=== PATIENT | male | born 1955 | race African-American/Black ===

== ENCOUNTER 2022-04-16 19:01 | Emergency (ER) | payer MEDICARE, MEDICAID, SELFPAY ==
[2022-04-16 19:19] VITALS: BP 128/92; BP 136/78; PULSE 81; PULSE 90; RESP 22; TEMP 36.9; O2SAT 93; O2SAT 94; BMI 42.2
--- NOTE | 2022-04-16 20:01 | ED_ITS ---
HPI - General Adult General Chief complaint: Epistaxis Stated complaint: Nose bleed Time Seen by Provider: 04/16/22 19:19 Source: patient Mode of arrival: EMS Limitations: no limitations History of Present Illness HPI narrative: 66 yold male with pmh of hepC, seizures, and high blood pressure presents to the ED for nose bleed since 15:00. Patient states his room was hot and then the lobby was hotter which cause nose bleeding. Patient states usually when the area is hot and humid he has nose bleed. Patient denies any recent nasal trauma, facial trauma, headache, dizziness, shortness of breath, chest pain, or swallowing/coughing up blood. Related Data Allergies Allergy/AdvReac Type Severity Reaction Status Date / Time No Known Allergies Allergy Verified 04/16/22 19:28 Review of Systems Review of Systems: Nose bleed Yes all other systems are reviewed and are negative [facility] Social History Social History Advance Directives: No Advance Directives Information Provided: No Physical Exam ED Vital Signs: Vital Signs - 24 hr 04/16/22 19:19 04/16/22 21:53 Temperature 98.5 F 98 F Pulse Rate 81 73 Respiratory Rate 22 H Blood Pressure 128/92 H 127/89 Pulse Oximetry 94 90 L Oxygen Delivery Method Room Air Room Air BMI result Body Mass Index 42.2 Const General: cooperative, healthy appearing, comfortable, no acute distress, well developed, alert, awake and Physically active Orientation/consciousness: oriented to person, oriented to place, oriented to time and patient oriented x3 HENMT Other: No blood in oral cavity.. No bleeding posterior pharynx oral on exam Head: Yes normal to inspection, Yes No palpable skull fracture present, Yes normocephalic, Yes atraumatic and No abrasion General nose exam: Epistaxis present bilaterally (seems anterior) active bleeding Eyes General: appearance normal, both eyes and all related structures Neck Neck: Yes normal visual inspection, Yes full ROM, Yes no lymphadenopathy, Yes no meningeal signs, Yes trachea midline, Yes supple, No anterior neck swelling and No tender Chest Chest palpation & inspection: normal inspection of the chest and normal palpation of entire chest wall Resp Effort & Inspection: normal respiratory effort and able to speak in complete sentences Auscultation: clear to auscultation bilaterally Cardio Jugular venous distension: no JVD Heart sounds: S1 normal heart sound present and S2 normal heart sound present GI Inspection: Yes normal to inspection and No abdominal wall ecchymosis Palpation (GI): Soft to palpation, not firm, nontender and no guarding General: No CVA tenderness and Yes no CVA tenderness Back/Spine/Pelvis Back: no CVA tenderness, No CVA tenderness and No back tenderness Skin General skin exam: no rashes or lesions noted and elasticity normal Neuro General: oriented to person, oriented to place, oriented to time, patient oriented x3, Normal light touch and pain sensation, no meningeal signs, no focal motor deficits and CN's II-XI intact bilaterally Extrem General: Yes normal to inspection and Yes full ROM Psych Appearance: grossly normal, well kempt and not disheveled Course Course Course Narrative: Nares clean with gauze. Bleeding improving. Once again oral exam negative for bleeding in specially posterior pharynx. Reevaluation(s) Reevaluation #1: Hand made nose clip with gauze placed on nares. Afrin was sprayed in each nostril. CN X sprayed into each nostril and then Tranxemic aci placed on cotton ball was placed into nares. Will evaluate. Time: 20:00 Reevaluation #2: Patient has been without any cotton ball in the nares and has not bled for 1 hour. No need for nasal packing. Post sat 90 is positional patient flat and has sleep apnea. Patient sleeping. Patient well-appearing. Patient to be discharged. No nasal packing needed Time: 22:31 Reevaluation #3: 02 sat on monitor before discharge 95%. Time: 00:10 Medications Administered Discontinued Medications Generic Name Dose Route Start Last Admin Trade Name [place]anoq PRN Reason Stop Dose Admin Tranexamic Acid 1,000 mg/ 60 mls @ 360 mls/hr 04/16/22 19:28 04/16/22 22:56 Sodium Chloride IV 04/16/22 19:37 360 mls/hr ONCE ONE Administration Oxymetazoline HCl 2 spray 04/16/22 19:28 04/16/22 22:56 Oxymetazoline Hcl 0.05 % Nasal 15 Ml [place] NOSTRIL-B 04/16/22 19:29 2 spray ONCE ONE Administration Medical Decision Making MDM Narrative Medical decision making narrative: Epistaxis Discharge Plan Discharge Clinical Impression: Epistaxis Patient Disposition: er [facility] Transfer Details: BACK TO [facility] Instructions: Nosebleed (ED) Additional Instructions: Do not sneeze at all. Do not pick her nose. Return to the ED for any nose bleed, trouble swallowing, blood from the mouth, chest pain, shortness of breath, weakness, dizziness, or any other concerning symptoms. Please follow-up with primary care provider. Print Language: Latvian
[2022-04-16 21:53] VITALS: BP 127/89; PULSE 73; TEMP 36.6; O2SAT 90
--- NOTE | 2022-04-16 22:08 | PC.NURSE ---
gravedigger in pt room asked for assistance by this RN. pt SpO2 90% RA. pt looked to need to be repositioned in bed. this rn , gravedigger alla, roger cid, and dr mcelroy boosted pt up in bed. ONce patient repositioned and HOB elevated SpO2 97% RA
--- NOTE | 2022-04-16 22:36 | PC.NURSE ---
@ [id number] CALL PLACED TO [facility] FOR BLS TRANSPORT BACK TO [facility] ANSWERS, TAKES PT INFO THEN STATE THIS TRANSPORT WILL TAKE PLACE AFTER 7AM DUE TO STAFFING CHRISTIAN December
[2022-04-16] MEDS: Tranexamic Acid 1,000 MG in 0.9 % Sodium Chloride 50 ML 360 MG IV (22:56)
[2022-04-16] MEDS: Oxymetazoline HCl 0.05 % Nasal 15 ML SPRAY 2 SPRAY NOSTRIL-B (22:56)
== END 2022-04-17 00:58 | disposition skilled nursing facility (03) ==
PROVIDERS: Emergency Provider Student in an Organized Health Care Education/Training Program
DX: R04.0 Epistaxis (principal)
CPT/HCPCS: 99284

== ENCOUNTER 2022-11-10 12:35 | Emergency (ER) | payer MEDICARE, MEDICAID, SELFPAY ==
--- NOTE | ~2022-11-10 | XR_ITS ---
EXAMINATION: XR CHEST CLINICAL INFORMATION: Cough COMPARISON: None available. TECHNIQUE: Frontal view of the chest was obtained. FINDINGS: The lungs are well expanded. There is no focal consolidation, edema, or effusion. Bronchial wall thickening. No pneumothorax. The cardiomediastinal silhouette is within normal limits. No acute osseous abnormality. XR/XR chest 1V IMPRESSION: No dense consolidation. Bronchial wall thickening can be seen with a small airways process such as asthma or atypical/viral infection.
--- NOTE | ~2022-11-10 | CT_ITS ---
CT ANGIOGRAM NECK WITH CONTRAST CT ANGIOGRAM BRAIN WITH CONTRAST CLINICAL INFORMATION: Loss of vision right eye COMPARISON: Head CT performed earlier the same day. TECHNIQUE: Test bolus sequences followed by intravenous administration 70 mL of Omnipaque 350. Helical imaging was performed in the axial plane from the thoracic inlet to the skull vertex. Delayed postcontrast imaging of the head was also performed. The data was processed at the medical technologist microbiology workstation for generation of MIP sequences. Angled MIPs and volume rendered reformatted images were also generated at an offline 3D workstation under concurrent supervision. Stenoses are assessed in accordance with NASCET criteria unless otherwise indicated. This CT examination was performed using dose optimization techniques as appropriate, variously including the following: *Automated exposure control *Adjustment of mA and/or kV according to patient size (this includes techniques or standardized protocols for targeted exams where dose is matched to indication/reason for exam; i.e. extremities or head) *Use of iterative reconstruction technique FINDINGS: BRAIN: [There is no intracranial hemorrhage, hydrocephalus, extra-axial surface collection, midline shift, or other herniation pattern. Iqbal to white matter differentiation is diffusely maintained without evidence of an evolved acute territorial infarct. The basilar cisterns are preserved. No significant soft tissue abnormality. No acute osseous abnormality. The paranasal sinuses and the mastoid air cells are well aerated.] CERVICAL SOFT TISSUES AND LUNG APICES: Peripheral blebs within the lungs. Atelectasis dependently within the lungs. No significant soft tissue findings within the neck. Postoperative changes following posterior instrumented fusion at C1-C3. Advanced cervical spondylosis. NECK CTA: [There is a classic 3 vessel configuration of the aortic arch. Proximal arch vessels are non-stenotic. The vertebral arteries are codominant. No significant ostial stenosis is visualized on either side. Both vertebral arteries are widely patent throughout their extracranial cervical course. Retropharyngeal course of the common carotid arteries, the proximal right internal carotid artery, and the proximal left external carotid artery. BRAIN CTA: [There is normal opacification of major intracranial arteries. No focal flow-limiting stenosis nor discrete proximal large artery occlusion. No aneurysm. Timing of the contrast bolus allows assessment of the major dural venous sinuses, which all opacify normally] CT/CT angio head neck IMPRESSION: - No definite acute intracranial findings. Chronic right frontoparietal craniotomy. There is cystic encephalomalacia and probable gliosis within the adjacent right frontal lobe. There is also chronic appearing encephalomalacia and gliosis within the lateral right temporal lobe with associated exvacuodilatation of the right temporal horn. If neurologic deficit persists, MRI would be more sensitive in evaluation. - No acute arterial occlusions and no significant arterial stenoses within the head or neck. - Postoperative changes following posterior instrumented fusion at C1-C3. Advanced cervical spondylosis.
--- NOTE | ~2022-11-10 | CT_ITS ---
EXAMINATION: CT HEAD WITHOUT CONTRAST CLINICAL INFORMATION: Loss of vision in the right COMPARISON: None. TECHNIQUE: Contiguous axial imaging was performed from the skull base to vertex without intravenous contrast. This CT examination was performed using dose optimization techniques as appropriate, variously including the following: * Automated exposure control * Adjustment of mA and/or kV according to patient size (this includes techniques or standardized protocols for targeted exams where dose is matched to indication/reason for exam; i.e. extremities or head) Use of iterative reconstruction technique DLP: 872 mGy-cm. FINDINGS: There is postsurgical appearance of right frontal craniotomy. Underlying cystic encephalomalacia in the right frontal lobe. Ex vacuo dilatation of the frontal horn of the right lateral ventricle. Separately there is an area of hypoattenuation with loss of locke to white matter differentiation involving the right temporal lobe. This is of uncertain chronicity, with no priors to compare. There is no evidence of acute intracranial hemorrhage. No abnormal mass effect or midline shift is seen. No extra-axial fluid collections are identified. No hydrocephalus. Proportional prominence of the ventricles and sulcal spaces is consistent with mild volume loss. Patchy periventricular and deep white matter hypoattenuation is consistent with moderate small vessel ischemic changes. No acute osseous or soft tissue abnormality.. The mastoid air cells and visualized portions of the paranasal sinuses are well aerated. CT/CT head/brain wo IV con IMPRESSION: No acute intracranial hemorrhage. Postsurgical changes of right frontal craniotomy with underlying cystic encephalomalacia of the right frontal lobe. Separately there is an area of hypoattenuation with loss of locke to white matter differentiation involving the right temporal lobe. This is of uncertain chronicity, with no priors to compare. Cannot exclude acute/subacute process. This will be further evaluated on the subsequent CTA.
[2022-11-10 12:40] VITALS: BP 138/81; PULSE 80; O2SAT 90
[2022-11-10 12:41] VITALS: BMI 44.3
--- NOTE | 2022-11-10 13:17 | ECG_ITS ---
Test Reason : ? STROKE Blood Pressure : / mmHG Vent. Rate : 064 BPM Atrial Rate : 064 BPM P-R Int : 224 ms QRS Dur : 090 ms QT Int : 410 ms P-R-T Axes : 049 -12 001 degrees QTc Int : 422 ms Sinus rhythm with 1st degree A-V block Otherwise normal ECG No previous ECGs available Referred By: Agnieszka Law Electronically Signed By:ARELI KLINE MD
--- NOTE | 2022-11-10 13:20 | ED.NEUROSD ---
HPI - Neuro Symptoms/Deficit General Chief Complaint: Eye Problems Stated Complaint: woke up unable to see out of r eye per ems Time Seen by Provider: 11/10/22 13:06 Source: patient Mode of arrival: EMS History of Present Illness HPI Narrative: 67-year-old male who is from [facility] arrives via EMS when he states he woke up with loss of sight in the right eye, it is noted to be pinpoint and not reactive to light, patient is a vague historian has an extensive history of TBI. On review of his chart I only appreciate hypertension and hep C other than the TBI in no evidence to suggest cardiac or diabetic history. Related Data Home Medications Medication Instructions Recorded Confirmed amlodipine 5 mg tablet 5 mg PO DAILY 11/10/22 atorvastatin 10 mg tablet 10 mg PO DAILY 11/10/22 clonazepam 1 mg tablet 1 mg PO BID PRN Anxiety 11/10/22 levetiracetam 1,000 mg tablet 1,000 mg PO BID 11/10/22 lisinopril 2.5 mg tablet 2.5 mg PO DAILY 11/10/22 Allergies Allergy/AdvReac Type Severity Reaction Status Date / Time No Known Allergies Allergy Verified 11/10/22 13:13 Review of Systems Review of Systems: Pertinent positives and negatives as stated in HPI PMFSH Past Medical History Source: nursing notes reviewed Social History Social History Advance Directives: Yes Advance Directives on File: Yes Advance Directives Date on File: 04/19/22 Physical Exam Vital Signs: Vital Signs: Last Vital Signs Temp 98.6 F 11/10/22 15:08 Pulse 72 11/10/22 20:10 Resp 16 11/10/22 20:10 BP 129/85 11/10/22 17:26 Pulse Ox 91 L 11/10/22 17:26 O2 Del Method Room Air 11/10/22 17:26 O2 Flow Rate 2 11/10/22 15:08 BMI result Body Mass Index 44.3 VITAL SIGNS: Reviewed. GENERAL: Elevated BMI, Well developed, well nourished, in no acute distress. HEAD: Normocephalic/atraumatic EYES: PERRLA, EOMI EARS: Ext canals without abnormality NOSE: Nares patent bilateral OROPHARYNX: no oral lesions noted, posterior pharynx clear NECK: Supple, no adenopathy LUNGS: Normal breath sounds. No adventitious sounds or accessory muscle use. CARDIOVASCULAR: Regular rate and rhythm without noted murmurs, no JVD bilateral 2 to 3+ pitting edema. ABDOMEN: Soft, non-tender, non-distended with bowel sounds. MUSCULOSKELETAL: No tenderness, deformities, or effusions noted on gross inspection. EXTREMITIES: No cyanosis, clubbing or edema. SKIN: Inspection of the skin reveals no rashes NEUROLOGIC: Alert and oriented x 4. Strength and sensation to light touch were grossly intact x 4 2nd no facial asymmetry, no pronator drift, cranial nerves 2-12 are grossly intact. Medications Administered Discontinued Medications Generic Name Dose Route Start Last Admin Trade Name Freq PRN Reason Stop Dose Admin Acetazolamide 500 mg 11/10/22 17:16 11/10/22 17:35 Acetazolamide Sodium 500 Mg Vial IVPUSH 11/10/22 17:17 500 mg ONCE ONE Administration Albuterol/Ipratropium 3 ml 11/10/22 19:24 11/10/22 20:10 Albuterol/Iprat 2.5/0.5mg 3 Ml Ampul.Neb INHALE 11/10/22 19:25 3 ml ONCE ONE Administration Apraclonidine HCl 1 drop 11/10/22 17:26 11/10/22 17:37 Apraclonidine Hcl 1 % Oph Antonina 1 Each [place] EYE-RIGHT 11/10/22 17:27 1 drop ONCE ONE Administration Apraclonidine HCl 1 drop 11/10/22 18:05 11/10/22 18:17 Apraclonidine Hcl 1 % Oph Antonina 1 Each [place] EYE-RIGHT 11/10/22 18:06 1 drop ONCE ONE Administration Iohexol 100 ml 11/10/22 15:41 11/10/22 15:41 Iohexol 350 Mg/Ml 100 Ml Infus..Btl IV 11/10/22 15:42 70 ml ONCE ONE Administration Timolol Maleate 1 drop 11/10/22 17:10 11/10/22 17:35 Timolol Maleate 0.5 % Oph Antonina 5 Ml Drbtl EYE-RIGHT 11/10/22 17:11 1 drop ONCE ONE Administration Medical Decision Making Medical Decision Making MDM Narrative: 67-year-old male with history and clinical presentation concerning for possible thrombus to the right eye, pupil is pinpoint and nonreactive there are no other focal findings, he is out of the window for intervention. -labs, EKG, CT head, CT angio head and neck Review of all investigations negative for acute intracranial findings to better explain patient's presentation. I is pinpoint, remains without vision, remains without pain, no erythematous injection, no exophthalmos features. Remained the decision to go ahead and attempt IOP and OD-41, OS-15. Timolol has been ordered and I will speak with Ophthalmology. 1724: I discussed the case with Dr. Thao who recommends Iopidine 0.5, 1 drop, recheck IOP in 30 minutes to 1 hour and if pressures have decreased to the 20s, repeat additional Iopidine drops tonight and again in the morning. If pressures do not drop then patient would need to be transferred to [facility] or [facility] if they have current ophthalmology coverage. He also agrees with the timolol and Acetazolamide. He also recommends ESR, CRP. 30 minutes repeat IOP OD-36, updated Master. Inflammatory markers are negative. 1924: Repeat IOP -28, patient still denies any vision within that eye. I have updated ophthalmology and plan is that if pressures are within the 20s, patient will take 1 more dose tonight and then again in the morning. Will ensure that the facility understands that patient needs to be seen by Dr. Thao in the morning. Differential Diagnosis Please see the discussion above Consult Healthcare Provider Management of the patient was discussed with: Insurance Office Supervisor Please see discussion above Lab Data Please see the discussion above 11/10/22 14:02 11/10/22 14:02 Labs: Lab Results 11/10/22 11/10/22 11/10/22 Range/Units 13:48 14:02 14:02 WBC 6.3 (4.8-10.8) X10*3/uL RBC 4.76 (4.60-5.80) X10*6/uL Hgb 13.8 L (14.0-18.0) g/dl Hct 44.9 (42.0-52.0) % MCV 94.3 (80.0-98.0) fL MCH 29.0 (27.0-33.0) pg MCHC 30.7 L (31.0-36.0) g/dl RDW 15.5 (11.0-16.0) % Plt Count 192 (160-400) X10*3/uL MPV 10.5 (9.4-12.4) fL Immature Gran % (Auto) 0.3 (0.0-0.4) % Neut % (Auto) 44.5 L (45-73) % Lymph % (Auto) 47.0 H (20-40) % [place] % (Auto) 6.9 (2-11) % Eos % (Auto) 1.0 (0-4) % Baso % (Auto) 0.3 (0-2) % Lymph # (Auto) 3.0 (1.2-4.9) X10*3/uL [place] # (Auto) 0.4 (0.1-1.2) X10*3/uL Eos # (Auto) 0.1 (0.0-0.4) X10*3/uL Baso # (Auto) 0.0 (0.0-0.2) X10*3/uL Abs Immat Gran (auto) 0.02 (0.00-0.03) X10*3/uL Absolute Neuts (auto) 2.8 (2.0-8.3) x10*3/uL Absolute Nucleated RBC 0.020 H (0.0-0.012) X10*3/uL Nucleated RBC % (auto) 0.3 H (0.0-0.2) /100WBC ESR (0-15) MM/HR PT 11.7 (10.0-13.1) SEC INR 1.0 (0.9-1.1) Sodium (135-145) mmol/L Potassium (3.3-5.1) mmol/L Chloride (96-108) mmol/L Carbon Dioxide (22-29) mmol/L Anion Gap (12-20) BUN (9-16) mg/dL Creatinine (0.5-1.4) mg/dL Estim Creat Clear Calc Estimated GFR POC Glucose 89 (60-115) mg/dL Random Glucose (60-115) mg/dL Calcium (8.4-10.2) mg/dL Total Bilirubin (0.0-1.0) mg/dL AST (5-37) U/L ALT (0-40) U/L Alkaline Phosphatase (39-117) U/L Troponin I High Sens (<3.5-35.0) ng/L C-Reactive Protein (< or = 0.50) mg/dL B-Natriuretic Peptide (<100) pg/mL Total Protein (6.5-8.0) g/dL Albumin (3.5-5.0) g/dL Urine Color Urine Appearance Urine pH (5.0-9.0) Ur Specific [place] (1.005-1.025) Urine Protein (Neg-Trace) mg/dL Urine Glucose (UA) (Negative) mg/dL Urine Ketones (Negative) mg/dL Urine Blood (Negative) Urine Nitrite (Negative) Ur Leukocyte Esterase (Negative) 11/10/22 11/10/22 11/10/22 Range/Units 14:02 14:02 14:02 WBC (4.8-10.8) X10*3/uL RBC (4.60-5.80) X10*6/uL Hgb (14.0-18.0) g/dl Hct (42.0-52.0) % MCV (80.0-98.0) fL MCH (27.0-33.0) pg MCHC (31.0-36.0) g/dl RDW (11.0-16.0) % Plt Count (160-400) X10*3/uL MPV (9.4-12.4) fL Immature Gran % (Auto) (0.0-0.4) % Neut % (Auto) (45-73) % Lymph % (Auto) (20-40) % [place] % (Auto) (2-11) % Eos % (Auto) (0-4) % Baso % (Auto) (0-2) % Lymph # (Auto) (1.2-4.9) X10*3/uL [place] # (Auto) (0.1-1.2) X10*3/uL Eos # (Auto) (0.0-0.4) X10*3/uL Baso # (Auto) (0.0-0.2) X10*3/uL Abs Immat Gran (auto) (0.00-0.03) X10*3/uL Absolute Neuts (auto) (2.0-8.3) x10*3/uL Absolute Nucleated RBC (0.0-0.012) X10*3/uL Nucleated RBC % (auto) (0.0-0.2) /100WBC ESR (0-15) MM/HR PT (10.0-13.1) SEC INR (0.9-1.1) Sodium 143 (135-145) mmol/L Potassium 4.9 (3.3-5.1) mmol/L Chloride 107 (96-108) mmol/L Carbon Dioxide 28 (22-29) mmol/L Anion Gap 13 (12-20) BUN 11 (9-16) mg/dL Creatinine 0.95 (0.5-1.4) mg/dL Estim Creat Clear Calc 114.6 Estimated GFR > 60 POC Glucose (60-115) mg/dL Random Glucose 88 (60-115) mg/dL Calcium 8.6 (8.4-10.2) mg/dL Total Bilirubin 0.4 (0.0-1.0) mg/dL AST 28 (5-37) U/L ALT 19 (0-40) U/L Alkaline Phosphatase 57 (39-117) U/L Troponin I High Sens < 2.7 (<3.5-35.0) ng/L C-Reactive Protein 0.10 (< or = 0.50) mg/dL B-Natriuretic Peptide < 10 (<100) pg/mL Total Protein 7.8 (6.5-8.0) g/dL Albumin 3.4 L (3.5-5.0) g/dL Urine Color Urine Appearance Urine pH (5.0-9.0) Ur Specific [place] (1.005-1.025) Urine Protein (Neg-Trace) mg/dL Urine Glucose (UA) (Negative) mg/dL Urine Ketones (Negative) mg/dL Urine Blood (Negative) Urine Nitrite (Negative) Ur Leukocyte Esterase (Negative) 11/10/22 11/10/22 Range/Units 14:02 15:11 WBC (4.8-10.8) X10*3/uL RBC (4.60-5.80) X10*6/uL Hgb (14.0-18.0) g/dl Hct (42.0-52.0) % MCV (80.0-98.0) fL MCH (27.0-33.0) pg MCHC (31.0-36.0) g/dl RDW (11.0-16.0) % Plt Count (160-400) X10*3/uL MPV (9.4-12.4) fL Immature Gran % (Auto) (0.0-0.4) % Neut % (Auto) (45-73) % Lymph % (Auto) (20-40) % [place] % (Auto) (2-11) % Eos % (Auto) (0-4) % Baso % (Auto) (0-2) % Lymph # (Auto) (1.2-4.9) X10*3/uL [place] # (Auto) (0.1-1.2) X10*3/uL Eos # (Auto) (0.0-0.4) X10*3/uL Baso # (Auto) (0.0-0.2) X10*3/uL Abs Immat Gran (auto) (0.00-0.03) X10*3/uL Absolute Neuts (auto) (2.0-8.3) x10*3/uL Absolute Nucleated RBC (0.0-0.012) X10*3/uL Nucleated RBC % (auto) (0.0-0.2) /100WBC ESR 10 (0-15) MM/HR PT (10.0-13.1) SEC INR (0.9-1.1) Sodium (135-145) mmol/L Potassium (3.3-5.1) mmol/L Chloride (96-108) mmol/L Carbon Dioxide (22-29) mmol/L Anion Gap (12-20) BUN (9-16) mg/dL Creatinine (0.5-1.4) mg/dL Estim Creat Clear Calc Estimated GFR POC Glucose (60-115) mg/dL Random Glucose (60-115) mg/dL Calcium (8.4-10.2) mg/dL Total Bilirubin (0.0-1.0) mg/dL AST (5-37) U/L ALT (0-40) U/L Alkaline Phosphatase (39-117) U/L Troponin I High Sens (<3.5-35.0) ng/L C-Reactive Protein (< or = 0.50) mg/dL B-Natriuretic Peptide (<100) pg/mL Total Protein (6.5-8.0) g/dL Albumin (3.5-5.0) g/dL Urine Color Yellow Urine Appearance Clear Urine pH 7.5 (5.0-9.0) Ur Specific [place] 1.020 (1.005-1.025) Urine Protein Negative (Neg-Trace) mg/dL Urine Glucose (UA) Negative (Negative) mg/dL Urine Ketones Negative (Negative) mg/dL Urine Blood Negative (Negative) Urine Nitrite Negative (Negative) Ur Leukocyte Esterase Negative (Negative) Independent Interpretation I performed an independent interpretation of an: EKG Interpretation: Sinus rhythm with first-degree AV block (no comparison), HR-64, no STEMI, VA-214, QRS/QTC is within normal limits. Radiology Impression Radiologist Impression: My interpretation is in agreement with radiology's impression. External Record Review External record reviewed: Prior outpatient labs Chronic Conditions Patient?s care impacted by: Hypertension Discharge Plan Discharge Clinical Impression: Increased pressure in the eye, Vision loss, right eye Patient Disposition: Xfer Other Instructions: Glaucoma (ED) Additional Instructions: 1. Resume all home medications as prescribed. 2. You need to place 1 drop from that vial into your right eye tonight, and then 1 drop in the morning. 3. You will be following up with Dr. Thao in the morning here at the [facility]. Return to the ER for any worsening symptoms. Prescriptions: No Action atorvastatin 10 mg tablet 10 mg PO DAILY clonazepam 1 mg tablet 1 mg PO BID PRN (Reason: Anxiety) amlodipine 5 mg tablet 5 mg PO DAILY lisinopril 2.5 mg tablet 2.5 mg PO DAILY levetiracetam 1,000 mg tablet 1,000 mg PO BID Referrals: Jeffry Thao [Physician] - (Right eye visual loss)
[2022-11-10 13:56] LABS: Glucose, Whole Blood 89 mg/dL (60-115)
[2022-11-10 14:07] LABS: MANUAL DIFF FLAG NO
[2022-11-10 14:08] LABS: Basophils Percent Auto 0.3 % (0-2); Eosinophils Absolute Auto 0.1 X10*3/uL (0.0-0.4); Hematocrit 44.9 % (42.0-52.0); Hemoglobin 13.8 g/dl (14.0-18.0); Imm Gran Abs Auto 0.02 X10*3/uL (0.00-0.03); Imm Gran Pct Auto 0.3 % (0.0-0.4); Mean Corpuscular HGB Conc 30.7 g/dl (31.0-36.0); Mean Corpuscular Volume 94.3 fL (80.0-98.0); Mean Platelet Volume 10.5 fL (9.4-12.4); Monocytes Absolute Auto 0.4 X10*3/uL (0.1-1.2); Monocytes Percent Auto 6.9 % (2-11); NRBC Pct Auto 0.3 /100WBC (0.0-0.2); Neutrophils Absolute Auto 2.8 x10*3/uL (2.0-8.3); Neutrophils Percent Auto 44.5 % (45-73); Platelet Count 192 X10*3/uL (160-400); Red Blood Count 4.76 X10*6/uL (4.60-5.80); Red Cell Distribution Width 15.5 % (11.0-16.0); White Blood Count 6.3 X10*3/uL (4.8-10.8)
[2022-11-10 14:23] LABS: Prothrombin Time 11.7 SEC (10.0-13.1)
[2022-11-10 14:26] LABS: Alanine Aminotransferase 19 U/L (0-40); Albumin Level 3.4 g/dL (3.5-5.0); Alkaline Phosphatase 57 U/L (39-117); Anion Gap 13 (12-20); Aspartate Amino Transferase 28 U/L (5-37); Bilirubin Total 0.4 mg/dL (0.0-1.0); Blood Urea Nitrogen 11 mg/dL (9-16); Calcium 8.6 mg/dL (8.4-10.2); Carbon Dioxide 28 mmol/L (22-29); Chloride 107 mmol/L (96-108); Creatinine Clr Calc Pharmacy 114.6; Estimated Glomerular Filt Rate > 60; Glucose Random 88 mg/dL (60-115); Potassium 4.9 mmol/L (3.3-5.1); Sodium 143 mmol/L (135-145); Total Protein 7.8 g/dL (6.5-8.0)
[2022-11-10 14:27] LABS: B Type Natriuretic Peptide < 10 pg/mL (<100)
[2022-11-10 14:31] LABS: Troponin-I High Sensitivity < 2.7 ng/L (<3.5-35.0)
[2022-11-10 15:08] VITALS: BP 134/93; PULSE 60; RESP 20; TEMP 37; O2SAT 94
[2022-11-10 15:22] LABS: Appearance Urine Clear; Color Urine Yellow; Glucose Urine UA Negative (Negative); Leukocyte Esterase Urine Negative (Negative); Nitrite Urine Negative (Negative); PH 7.5 (5.0-9.0); Urine Blood Negative (Negative); Urine Ketones Negative (Negative); Urine Protein Negative (Neg-Trace)
--- NOTE | 2022-11-10 15:32 | MHC.CM.ED ---
Received notification from Geeta at [facility] that patient is a LTC resident of their facility. Referral placed in [facility] so facility can follow for d/c needs.
[2022-11-10] MEDS: iohexoL 350 MG/ML 100 ML INFUS..BTL IV (15:41)
--- NOTE | 2022-11-10 17:19 | PC.NURSE ---
pharmacy called for Timolol eye drops.
[2022-11-10 17:26] VITALS: BP 129/85; PULSE 78; RESP 20; O2SAT 91
[2022-11-10] MEDS: timoloL maleate 0.5 % Oph Sol 5 ML DRBTL 1 DROP EYE-RIGHT (17:35)
[2022-11-10] MEDS: acetaZOLAMIDE sodium 500 MG VIAL IVPUSH (17:35)
[2022-11-10] MEDS: Apraclonidine HCl 1 % Oph Sol 1 EACH DROPERETTE 1 DROP EYE-RIGHT ×2 (17:37→18:17)
[2022-11-10 18:28] LABS: Erythrocyte Sedimentation Rate 10 MM/HR (0-15)
[2022-11-10 20:10] VITALS: PULSE 72; RESP 16; O2SAT 91
[2022-11-10] MEDS: Albuterol/Iprat 2.5/0.5MG 3 ML AMPUL.NEB INHALE (20:10)
[2022-11-10 20:55] VITALS: BP 136/91; PULSE 71; RESP 14; O2SAT 91
--- NOTE | 2022-11-10 21:28 | PC.NURSE ---
Attempt made to provide nursing report. [facility] reports will call back for report.
== END 2022-11-10 21:35 | disposition other institution (70) ==
PROVIDERS: Emergency Provider Student in an Organized Health Care Education/Training Program
DX: H54.61 Unqualified visual loss, right eye, normal vision left eye (principal); R94.31 Abnormal electrocardiogram [ECG] [EKG]; R05.9 Cough, unspecified; R51.9 Headache, unspecified; R06.02 Shortness of breath; M54.2 Cervicalgia; Z20.822 Contact with and (suspected) exposure to COVID-19; Z20.828 Contact with and (suspected) exposure to other viral communicable diseases; Z79.899 Other long term (current) drug therapy
CPT/HCPCS: 36415; 70450; 70496; 70498; 71045; 80053; 81003; 82947; 83880; 84484; 85025; 85610; 85652; 86140; 93005; 94640; 96374; 99285; Q9967

== ENCOUNTER 2022-11-11 16:10 | Outpatient (REF) | payer MEDICARE, MEDICAID, SELFPAY ==
[2022-11-11 16:34] VITALS: BP 117/68; PULSE 82; RESP 18; TEMP 36.6; O2SAT 93
[2022-11-11 17:35] VITALS: BP 137/82; PULSE 83; RESP 18; TEMP 36.9; O2SAT 91
== END 2022-11-11 16:11 ==
LOC: HO.MS 16:10
PROVIDERS: Visit Provider Ophthalmology
PROC: (CPT 66761; principal; 2022-11-11 16:30)
DX: H40.031 Anatomical narrow angle, right eye (principal); Z79.899 Other long term (current) drug therapy
CPT/HCPCS: 66761

== ENCOUNTER 2022-12-27 11:55 | Outpatient (AMB) | payer MEDICARE, MEDICAID, SELFPAY ==
--- NOTE | 2022-12-27 12:00 | MHC.OFFVIS ---
Intake Vital Signs 12/27/22 12:42 Height 6 ft 3 in Weight 328 lb 7.82 oz BMI 41.1 BP 128/81 Blood Pressure Location Lt brachial Position Sitting Pulse 83 Intake Visit Reasons: untreated Hep C Intake Note: Nick presents in the office as a new patient for untreated Hep C CC: He states that he had a colonoscopy years ago he was unsure which hospital. No concerns today. 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 ? He is referred by [facility] which is a [facility] facility. PMX Morbid obesity Polysubstance abuse including alcohol Hepatitis C genotype 1b Traumatic brain injury with cognitive impairment Smoker Hypertension High cholesterol Chronic subdural hematoma and seizures GERD Oropharyngeal dysphagia Peripheral arterial disease.. Bilateral lower leg edema * SURGICAL HISTORY Right ankle fracture repair Cataracts Craniotomy * ALLERGIES: NKDA * [employer] LABS: Laboratory Tests 11/10/22 11/10/22 14:02 14:02 WBC 6.3 Hgb 13.8 L Hct 44.9 Plt Count 192 Estimated GFR > 60 Total Bilirubin 0.4 AST 28 ALT 19 Alkaline Phosphata se 57 TODAY'S VISIT He is here today with an aide from the nursing home who is not very helpful with the history. Denies any trouble with his liver that he is aware of in terms of jaundice icterus or abdominal swelling. He is morbidly obese. Reviewing his liver functions he does not look like he has an active infection but we will get hepatitis a B and C qualitative panel as well as a hepatitis C viral load to determine his exact status. Will also get ultrasound of the abdomen. He has a agreeable to all of these interventions. Return office visit after the ultrasound. [facility] Medical History (Updated 12/27/22 @ 16:36 by GIBRAN Dumont) Polysubstance abuse Traumatic brain injury Surgical History (Updated 12/27/22 @ 12:46 by INO De Jesus) H/O craniotomy History of ankle surgery Hx of cataract surgery Hx of colonoscopy Social History Advance Directives Date on File: 04/19/22 Review of Systems Const Denies fatigue, Denies fever(s), Denies night sweats, Denies poor appetite and Denies weight loss ENT Reports Normal hearing present, Denies dental pain, Denies dysphagia, Denies hearing loss, Denies mouth pain, Denies odynophagia, Denies throat swelling, Denies tongue swelling and Reports other (Dentition adequate) Card Reports no additional complaints and Reports leg edema Resp Reports no additional complaints GI Denies abdominal pain, Denies melena, Denies bloating, Denies hematochezia, Denies constipation, Denies GI cramping, Denies dysphagia, Denies excessive flatus, Denies early satiety, Reports heartburn, Denies diarrhea, Denies nausea, Denies odynophagia, Denies vomiting and Denies hematemesis Musc Reports back pain, Reports myalgias, Reports arthralgias and Reports joint swelling Skin/Breast Denies pruritus, Denies lesions, Denies rash and Denies jaundice Neuro Reports Normal hearing present, Denies Abnormal speech present and Reports memory loss Psych Reports memory loss Endo Denies fatigue Aller/Immun Denies throat swelling and Denies tongue swelling Physical Exam Vital Signs: Last Vital Signs Pulse 83 12/27/22 12:42 BP 128/81 12/27/22 12:42 BMI result Body Mass Index 41.1 Const General: cooperative, no acute distress, well developed and well groomed Nutritional Appearance: well nourished and obese (with very marked central adiposity) morbidly obese Orientation/consciousness: oriented to person, oriented to place and oriented to time Limitations: No language barrier, ambulation with cane and other limitations HEENT Head: Yes normocephalic and Yes atraumatic Eyes General: appearance normal, both eyes and all related structures Pupils: Equal, round and reactive pupils present Neck Neck: Yes normal visual inspection and Yes no lymphadenopathy Thyroid: Thyroid normal Resp Effort & Inspection: normal respiratory effort and able to speak in complete sentences Auscultation: clear to auscultation bilaterally Cardio Rate: regular rate Rhythm: regular rhythm Heart sounds: Normal, physiologic split S2 sound present Peripheral pulses: radial pulses present and posterior tibial pulses present GI Other: palpation exam somewhat limited r/t pt habitus Inspection: No distended, Yes Abdominal panniculus present and Yes obesity Palpation (GI): Soft to palpation, nontender, no guarding, not rigid, No hepatosplenomegaly present and Hernia present umbilical Percussion: Yes normal to percussion Auscultation: normal bowel sounds Rectal Exam - Male: Yes deferred Skin General skin exam: no rashes or lesions noted, turgor normal, skin not dry, no jaundice, No spider nevi and no striae Rashes: no rashes Nails: normal Neuro General: oriented to person, oriented to place and oriented to time Cranial nerves: Yes Equal, round and reactive pupils present and Yes Normal hearing present Speech: No Abnormal speech present Extrem General: Yes normal to inspection, No clubbing, No cyanosis, Yes edema and Yes venous stasis dermatitis Elbow/forearm/wrist images: 1. surgical scar Psych Appearance: grossly normal and well kempt Mental Status: other Speech and movement: Slowed speech present (Psych) Affect: normal affect Attitude: cooperative Thought content: Normal thought content present Insight: Limited insight present (Psych) Judgement: Limited judgement present (Psych) Assessment & Plan Assessment & Plan (1) Hepatitis C: Code(s): B19.20 - Unspecified viral hepatitis C without hepatic coma Plan: He is here today with an aide from the nursing home who is not very helpful with the history. Denies any trouble with his liver that he is aware of in terms of jaundice icterus or abdominal swelling. He is morbidly obese. Reviewing his liver functions he does not look like he has an active infection but we will get hepatitis a B and C qualitative panel as well as a hepatitis C viral load to determine his exact status. Will also get ultrasound of the abdomen. He has a agreeable to all of these interventions. Return office visit after the ultrasound. (2) Morbid obesity: Code(s): E66.01 - Morbid (severe) obesity due to excess calories (3) Mild cognitive impairment: Code(s): G31.84 - Mild cognitive impairment of uncertain or unknown etiology (4) Polysubstance abuse: Comment: INCLUDING ALCOHOL Code(s): F19.10 - Other psychoactive substance abuse, uncomplicated Orders: Orders Hepatitis A,B,C Profile Today B19.20 - Unspecified viral hepatitis C without hepatic coma Hepatitis C Viral Load Today B19.20 - Unspecified viral hepatitis C without hepatic coma US abdomen complete Today B19.20 - Unspecified viral hepatitis C without hepatic coma Coding Level of Care Code New Pt Level 3 (38602) Diagnoses Hepatitis C B19.20 Morbid obesity E66.01 Mild cognitive impairment G31.84 Polysubstance abuse F19.10
[2022-12-27 12:42] VITALS: BP 128/81; PULSE 83; BMI 41.1
== END 2022-12-27 13:02 | disposition home or self-care (01) ==
PROVIDERS: Visit Provider Nurse Practitioner
DX: B19.20 Unspecified viral hepatitis C without hepatic coma (principal); E66.01 Morbid (severe) obesity due to excess calories; G31.84 Mild cognitive impairment of uncertain or unknown etiology; F19.10 Other psychoactive substance abuse, uncomplicated
CPT/HCPCS: 99203

== ENCOUNTER → 2022-12-27 11:55 | Outpatient (BNVA) | payer MEDICARE, MEDICAID, SELFPAY | PROVIDERS: Visit Provider Nurse Practitioner | DX: B19.20 Unspecified viral hepatitis C without hepatic coma (principal); E66.01 Morbid (severe) obesity due to excess calories; G31.84 Mild cognitive impairment of uncertain or unknown etiology; F19.10 Other psychoactive substance abuse, uncomplicated; Z68.41 Body mass index [BMI] 40.0-44.9, adult | CPT/HCPCS: 99202 ==

== ENCOUNTER 2023-01-04 08:31 | Outpatient (REF) | payer MEDICARE, MEDICAID, SELFPAY ==
--- NOTE | ~2023-01-04 | US_ITS ---
EXAMINATION: US ABDOMEN COMPLETE CLINICAL INFORMATION: Unspecified viral hepatitis C without hepatic coma. COMPARISON: None available. TECHNIQUE: Real-time imaging of the abdominal viscera. FINDINGS: PANCREAS: Largely obscured by overlapping bowel gas. ABDOMINAL AORTA: The proximal and mid segments are normal in caliber. The distal segment is suboptimally evaluated due to overlying bowel gas. INFERIOR VENA CAVA: Visualized portions are normal. LIVER: Limited. The liver is normal in size. The liver contour is normal. There is diffuse increased liver parenchymal echogenicity. No focal hepatic lesion. There is no intrahepatic biliary duct dilatation seen. GALLBLADDER: The gallbladder is physiologically distended. Multiple mobile gallstones are present. No evidence of pericholecystic fluid or gallbladder wall thickening. COMMON BILE DUCT: Normal in caliber measuring 0.3 cm in diameter. RIGHT KIDNEY: Normal. No hydronephrosis. No renal calculi or focal parenchymal lesions. The kidney measures 11.6 cm in maximum dimension. LEFT KIDNEY: Normal. No hydronephrosis. No renal calculi or focal parenchymal lesions. The kidney measures 11.9 cm in maximum dimension. SPLEEN: Limited. The spleen measures 11.1 cm in maximum dimension. FREE FLUID: None. US/US abdomen complete IMPRESSION: 1. There is generalized increase in hepatic echotexture, consistent with fatty infiltration or hepatocellular disease. Please correlate clinically. No focal hepatic mass or intrahepatic biliary dilatation is seen. 2. There is cholelithiasis. 3. Technically limited examination.
== END 2023-01-04 08:32 | disposition home or self-care (01) ==
LOC: HO.US 08:31
PROVIDERS: Referring Provider Nurse Practitioner; Visit Provider Emergency Medicine
DX: B19.20 Unspecified viral hepatitis C without hepatic coma (principal)
CPT/HCPCS: 76700

== ENCOUNTER 2023-01-18 08:20 | Outpatient (AMB) | payer MEDICARE, MEDICAID, SELFPAY ==
--- NOTE | 2023-01-18 08:27 | MHC.OFFVIS ---
Intake Vital Signs 01/18/23 08:28 Height 6 ft 3 in Weight 328 lb 7.82 oz BMI 41.1 BP 136/88 Blood Pressure Location Lt brachial Position Sitting Pulse 76 Intake Visit Reasons: Follow up US and labs. Intake Note: Nick presents in the office as a follow up for his US and his Labs. CC: He is not very sure of his medications too much. He had cataract surgery and is unable to see out his right eye. 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 HPI Details Assessment & Plan (1) Hepatitis C: ?Code(s): B19.20 - Unspecified viral hepatitis C without hepatic coma ?Plan: He is here today with an aide from the assisted who is not very helpful with the history.? Denies any trouble with his liver that he is aware of in terms of jaundice icterus or abdominal swelling.? He is morbidly obese.? Reviewing his liver functions he does not look like he has an active infection but we will get hepatitis a B and C qualitative panel as well as a hepatitis C viral load to determine his exact status.? Will also get ultrasound of the abdomen.? He has a agreeable to all of these interventions.? Return office visit after the ultrasound. (2) Morbid obesity: ?Code(s): E66.01 - Morbid (severe) obesity due to excess calories (3) Mild cognitive impairment: ?Code(s): G31.84 - Mild cognitive impairment of uncertain or unknown etiology (4) Polysubstance abuse: ?Comment: INCLUDING ALCOHOL ?Code(s): F19.10 - Other psychoactive substance abuse, uncomplicated ? ? ? Orders: Orders Hepatitis A,B,C Pr ofile Today B19.20 - Unspecifi ed viral hepatitis C without hepatic coma ? Hepatitis C Viral Load Today B19.20 - Unspecifi ed viral hepatitis C without hepatic coma ? US abdomen complet e Today B19.20 - Unspecifi ed viral hepatitis C without hepatic coma ? LABS: ? obtained ULTRASOUND OF THE ABDOMEN 01/05/23 FINDINGS: PANCREAS: Largely obscured by overlapping bowel gas. ABDOMINAL AORTA: The proximal and mid segments are normal in caliber. The distal segment is suboptimally evaluated due to overlying bowel gas. INFERIOR VENA CAVA: Visualized portions are normal. LIVER: Limited. The liver is normal in size. The liver contour is normal. There is diffuse increased liver parenchymal echogenicity. No focal hepatic lesion. There is no intrahepatic biliary duct dilatation seen. GALLBLADDER: The gallbladder is physiologically distended. Multiple mobile gallstones are present. No evidence of pericholecystic fluid or gallbladder wall thickening. COMMON BILE DUCT: Normal in caliber measuring 0.3 cm in diameter. RIGHT KIDNEY: Normal. No hydronephrosis. No renal calculi or focal parenchymal lesions. The kidney measures 11.6 cm in maximum dimension. LEFT KIDNEY: Normal. No hydronephrosis. No renal calculi or focal parenchymal lesions. The kidney measures 11.9 cm in maximum dimension. SPLEEN: Limited. The spleen measures 11.1 cm in maximum dimension. FREE FLUID: None. US/US abdomen complete IMPRESSION: ? 1. There is generalized increase in hepatic echotexture, consistent with fatty infiltration or hepatocellular disease. Please correlate clinically. No focal hepatic mass or intrahepatic biliary dilatation is seen. ? 2. There is cholelithiasis. ? 3. Technically limited examination. TODAY'S VISIT He lives on he first floor. He has no staff with him today and he has cognitive impairment. We called the facility 4 times, and were hung up on 3 times. Finally, we got through to an BOX OFFICE ATTENDANT Geeta and she told us they could not get into the computer to see if the labs were done. I reprinted the labs and attached my business card with the fax # for us. They promised to get the labs drawn or get me the results. This is the most critical part of his treatment. The US showed multiple mobile gallstones, but Nick says he has not pain with eating. This may or may not be a problem in the future. ROV 4 weeks. [facility] Medical History Polysubstance abuse Traumatic brain injury Surgical History H/O craniotomy History of ankle surgery Hx of cataract surgery Hx of colonoscopy Social History Advance Directives Date on File: 04/19/22 Review of Systems Const Denies fatigue, Denies fever(s), Denies night sweats, Denies poor appetite and Denies weight loss ENT Reports Normal hearing present, Denies dental pain, Denies dysphagia, Denies hearing loss, Denies mouth pain, Denies odynophagia, Denies throat swelling, Denies tongue swelling and Reports other (Dentition adequate) Card Reports leg edema Resp Reports no additional complaints GI Denies abdominal pain, Denies melena, Denies bloating, Denies hematochezia, Denies constipation, Denies GI cramping, Denies dysphagia, Denies excessive flatus, Denies early satiety, Denies heartburn, Denies diarrhea, Denies nausea, Denies odynophagia, Denies vomiting and Denies hematemesis Musc Reports abnormal gait Skin/Breast Reports dry skin, Denies pruritus, Denies lesions, Denies rash and Denies jaundice Neuro Reports Normal hearing present, Denies Abnormal speech present, Reports abnormal gait, Reports confusion, Reports lack of coordination, Reports memory loss and Reports convulsions Psych Reports confusion and Reports memory loss Endo Denies fatigue Aller/Immun Denies throat swelling and Denies tongue swelling Physical Exam Vital Signs: Last Vital Signs Pulse 76 01/18/23 08:28 BP 136/88 01/18/23 08:28 BMI result Body Mass Index 41.1 Const General: cooperative, no acute distress, well developed and confusion Nutritional Appearance: well nourished and obese Orientation/consciousness: oriented to person, oriented to place and confusion Limitations: No language barrier, ambulation with cane and other limitations HEENT Head: Yes normocephalic and Yes atraumatic Eyes General: appearance normal, both eyes and all related structures Pupils: Equal, round and reactive pupils present Neck Neck: Yes normal visual inspection and Yes no lymphadenopathy Thyroid: Thyroid normal Resp Effort & Inspection: normal respiratory effort and able to speak in complete sentences Auscultation: clear to auscultation bilaterally Cardio Rate: regular rate Rhythm: regular rhythm Heart sounds: Normal, physiologic split S2 sound present Peripheral pulses: radial pulses present and posterior tibial pulses present GI Inspection: No distended, Yes Abdominal panniculus present and Yes obesity Palpation (GI): Soft to palpation, nontender, no guarding, not rigid and No hepatosplenomegaly present Percussion: Yes normal to percussion Auscultation: normal bowel sounds Rectal Exam - Male: Yes deferred Skin General skin exam: no rashes or lesions noted, turgor normal, skin not dry, no jaundice, No spider nevi and no striae Rashes: no rashes Nails: normal Neuro General: oriented to person, oriented to place and confusion Cranial nerves: Yes Equal, round and reactive pupils present and Yes Normal hearing present Speech: No Abnormal speech present Extrem General: Yes normal to inspection, No clubbing, No cyanosis, Yes edema and Yes venous stasis dermatitis Psych Appearance: grossly normal and disheveled Mental Status: other Speech and movement: Slurred speech present and Slowed speech present (Psych) Affect: normal affect Attitude: cooperative Thought process: Impoverished thought process present Thought content: Normal thought content present Insight: Poor insight present (Psych) Judgement: Poor judgement present (Psych) Assessment & Plan Assessment & Plan (1) Hepatitis C: Code(s): B19.20 - Unspecified viral hepatitis C without hepatic coma Plan: He lives on he first floor. He has no staff with him today and he has cognitive impairment. We called the facility 4 times, and were hung up on 3 times. Finally, we got through to an FRANCHESKA Connor and she told us they could not get into the computer to see if the labs were done. I reprinted the labs and attached my business card with the fax # for us. They promised to get the labs drawn or get me the results. This is the most critical part of his treatment. The US showed multiple mobile gallstones, but Nick says he has not pain with eating. This may or may not be a problem in the future. ROV 4 weeks. Coding Level of Care Code Est Pt Level 3 (50820) Diagnoses Hepatitis C B19.20
[2023-01-18 08:28] VITALS: BP 136/88; PULSE 76; BMI 41.1
== END 2023-01-18 09:30 | disposition home or self-care (01) ==
PROVIDERS: Visit Provider Nurse Practitioner
DX: B19.20 Unspecified viral hepatitis C without hepatic coma (principal)
CPT/HCPCS: 99213

== ENCOUNTER → 2023-01-18 08:20 | Outpatient (BNVA) | payer MEDICARE, MEDICAID, SELFPAY | PROVIDERS: Visit Provider Nurse Practitioner | DX: B19.20 Unspecified viral hepatitis C without hepatic coma (principal) | CPT/HCPCS: 99212 ==

== ENCOUNTER 2023-02-15 09:24 | Outpatient (AMB) | payer MEDICARE, MEDICAID, SELFPAY ==
--- NOTE | 2023-02-15 09:29 | A.OFFVIS_ITS ---
Intake Vital Signs 02/15/23 09:41 Height 6 ft 8 in Weight 320 lb BMI 35.2 BP 122/84 Blood Pressure Location Lt brachial Position Sitting Intake Visit Reasons: 4 week follow up Intake Note: Nick presents in the office as a follow up of Hepatitis C. CC: Patient denies having any GI symptoms today. Submarine Diver Required: No Allergies orange juice Allergy (Mild, Verified 02/15/23 09:38) Anaphylaxis HPI 4 week follow up HPI Details Assessment & Plan (1) Hepatitis C: Code(s): B19.20 - Unspecified viral hepatitis C without hepatic coma Plan: He lives on he first floor. He has no staff with him today and he has cognitive impairment. We called the facility 4 times, and were hung up on 3 times. Finally, we got through to an [employer] Geeta and she told us they could not get into the computer to see if the labs were done. I reprinted the labs and attached my business card with the fax # for us. They promised to get the labs drawn or get me the results. This is the most critical part of his treatment. The US showed multiple mobile gallstones, but Nick says he has not pain with eating. This may or may not be a problem in the future. ROV 4 weeks. LABS: Laboratory Tests 11/10/22 14:02 WBC 6.3 Hgb 13.8 L Hct 44.9 Plt Count 192 Estimated GFR > 60 Total Bilirubin 0.4 AST 28 ALT 19 Alkaline Phosphata se 57 C-Reactive Protein 0.10 HEP A,B,C QUAL POSITIVE, CORE AND SUFACE HEP B +, SURFACE ANTIGEN NEG, LOW VIRIAL LOAD HEP C CORRESPONDENCE On 01/25/23 @ 15:06 Isacc Estrada Wrote To Viral load was received and scanned yesterday. On 01/24/23 @ 14:31 Isacc Estrada Wrote To Isacc Estrada [facility] request and they agreed to fax over Hep C viral load results. On 01/24/23 @ 12:07 Kelsy Cantu Wrote To Isacc Estrada Ok, but they did not include the Hep C viral load, which is critical to determine treatment, which was [facility] second lab sheet sent. Can you please call to get this? On 01/24/23 @ 11:43 Isacc Estrada Wrote To Kelsy Cantu Isacc Estrada removed from item. On 01/24/23 @ 10:53 Angeline Hilton Wrote To Jeff Cantuzdfguiop[] item it was leaking we TODAY'S VISIT I tell the patient that were ready to move forward and order his hepatitis C medication. It will probably be mailed to his facility and he should not started until he calls us to let us know he has received this so we will know his start date. The patient is happy to hear this. Because of prior poor communication I typed out a note for his [facility] telling them specifically to call us when they received the medication so we will know when his 1st dose starts. I even gave him our back line number so they can contact us more easily. This will allow us to set up his follow-up date and his follow-up lab work. 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 Return office visit in 4 weeks [facility] Medical History Polysubstance abuse Traumatic brain injury Surgical History H/O craniotomy History of ankle surgery Hx of cataract surgery Hx of colonoscopy Social History Advance Directives Date on File: 04/19/22 Review of Systems Const Denies fatigue, Denies fever(s), Denies night sweats, Denies poor appetite and Denies weight loss ENT Reports Normal hearing present, Denies dysphagia, Denies odynophagia, Denies throat swelling and Denies tongue swelling Card Reports no additional complaints Resp Reports no additional complaints GI Denies abdominal pain, Denies melena, Denies bloating, Denies hematochezia, Denies constipation, Denies GI cramping, Denies dysphagia, Denies excessive flatus, Denies early satiety, Denies heartburn, Denies diarrhea, Denies nausea, Denies odynophagia, Denies vomiting and Denies hematemesis Skin/Breast Denies pruritus, Denies lesions, Denies rash and Denies jaundice Neuro Reports Normal hearing present and Denies Abnormal speech present Endo Denies fatigue Aller/Immun Denies throat swelling and Denies tongue swelling Physical Exam Vital Signs: Last Vital Signs BP 122/84 02/15/23 09:41 BMI result Body Mass Index 35.2 Const General: cooperative, no acute distress, well developed and well groomed Nutritional Appearance: well nourished and obese Orientation/consciousness: oriented to person, oriented to place and oriented to time Limitations: altered mental status, No language barrier, physical limitations, ambulation with cane, wheelchair and other limitations HEENT Head: Yes normocephalic and Yes atraumatic Eyes General: appearance normal, both eyes and all related structures Pupils: Equal, round and reactive pupils present Neck Neck: Yes normal visual inspection and Yes no lymphadenopathy Thyroid: Thyroid normal Resp Effort & Inspection: normal respiratory effort and able to speak in complete sentences Auscultation: clear to auscultation bilaterally Cardio Rate: regular rate Rhythm: regular rhythm Heart sounds: Normal, physiologic split S2 sound present Peripheral pulses: radial pulses present and posterior tibial pulses present GI Inspection: No distended, No Abdominal panniculus present and Yes obesity Palpation (GI): Soft to palpation, nontender, no guarding, not rigid and No hepatosplenomegaly present Percussion: Yes normal to percussion Auscultation: normal bowel sounds Rectal Exam - Male: Yes deferred Skin General skin exam: no rashes or lesions noted, turgor normal, skin not dry, no jaundice, No spider nevi and no striae Rashes: no rashes Nails: normal Neuro General: oriented to person, oriented to place and oriented to time Cranial nerves: Yes Equal, round and reactive pupils present and Yes Normal hearing present Speech: No Abnormal speech present Extrem General: Yes normal to inspection, No clubbing, No cyanosis, Yes edema and Yes venous stasis dermatitis Psych Appearance: grossly normal and well kempt Mental Status: other Speech and movement: Slurred speech present and Slowed speech present (Psych) Affect: normal affect Attitude: cooperative Thought process: Circumstantial thought process present, not confabulating and Impoverished thought process present Thought content: Normal thought content present Insight: Poor insight present (Psych) Judgement: Poor judgement present (Psych) Assessment & Plan Assessment & Plan (1) Hepatitis C: Code(s): B19.20 - Unspecified viral hepatitis C without hepatic coma Plan: I tell the patient that were ready to move forward and order his hepatitis C medication. It will probably be mailed to his facility and he should not started until he calls us to let us know he has received this so we will know his start date. The patient is happy to hear this. Because of prior poor communication I typed out a note for his [facility] telling them specifically to call us when they received the medication so we will know when his 1st dose starts. I even gave him our back line number so they can contact us more easily. This will allow us to set up his follow-up date and his follow-up lab work. 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 Return office visit in 4 weeks Medications: New sofosbuvir-velpatasvir 400-100 mg (Epclusa) 1 tab PO DAILY 84 tabs 0RF 12 weeks B19.20 - Unspecified viral hepatitis C without hepatic coma Patient Instructions: Nick Russ He is positive for past infections of Hepatitis A and B, but these are not active now. He has a low level of Hepatitis C antigen, and we will treat with Epclusa for 12 weeks. I am working on getting the medicine approved, and it will most likely be mailed to the facility from a specialty pharmacy. YOU NEED TO CALL ME WHEN YOU GET IT TO LET ME KNOW WHEN HE WILL BE TAKING THE FIRST DOSE! This is critical as we need to draw labs 4 weeks after he starts to be sure the Hepatitis B does not reactivate and that the medication is working for the Hepatitis C. ?Please call at [phone] as this is the back line and makes it easier to contact us; do not give this number to patients. I want to see him back in [address] Kelsy Cantu, [facility] [place] [facility] Coding Level of Care Code Est Pt Level 3 (69536) Diagnoses Hepatitis C B19.20
[2023-02-15 09:41] VITALS: BP 122/84; BMI 35.2
== END 2023-02-15 10:02 | disposition home or self-care (01) ==
PROVIDERS: Visit Provider Nurse Practitioner
DX: B19.20 Unspecified viral hepatitis C without hepatic coma (principal)
CPT/HCPCS: 99213

== ENCOUNTER → 2023-02-15 09:24 | Outpatient (BNVA) | payer MEDICARE, MEDICAID, SELFPAY | PROVIDERS: Visit Provider Nurse Practitioner | DX: B19.20 Unspecified viral hepatitis C without hepatic coma (principal) | CPT/HCPCS: 99212 ==

== ENCOUNTER 2023-04-04 12:23 | Outpatient (AMB) | payer MEDICARE, MEDICAID, SELFPAY ==
--- NOTE | 2023-04-04 12:43 | MHC.OFFVIS ---
Intake Vital Signs 04/04/23 12:48 Height 6 ft 3 in BMI Reason not done Patient refused/unable BP 129/86 Blood Pressure Location Lt brachial Position Sitting Pulse 66 Comment Unable to weight Pt came in on a stretcher Intake Visit Reasons: 4 week follow up Intake Note: Patient presents to in office visit today in follow up of Hep C. CC: Patient reports feeling well today. 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 It will probably be mailed to his facility and he should not started until he calls us to let us know he has received this so we will know his start date. The patient is happy to hear this. Because of prior poor communication I typed out a note for his assisted telling them specifically to call us when they received the medication so we will know when his 1st dose starts. I even gave him our back line number so they can contact us more easily. This will allow us to set up his follow-up date and his follow-up lab work. 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 Return office visit in 4 weeks Medications: New sofosbuvir-velpata svir 400-100 mg (E pclusa) 1 tab PO DAILY 84 tabs 0RF 12 weeks B19.20 - Unspecifi ed viral hepatitis C without hepatic coma Patient Instructions: Nick Russ He is positive for past infections of Hepatitis A and B, but these are not active now. He has a low level of Hepatitis C antigen, and we will treat with Epclusa for 12 weeks. I am working on getting the medicine approved, and it will most likely be mailed to the facility from a specialty pharmacy. YOU NEED TO CALL ME WHEN YOU GET IT TO LET ME KNOW WHEN HE WILL BE TAKING THE FIRST DOSE! This is critical as we need to draw labs 4 weeks after he starts to be sure the Hepatitis B does not reactivate and that the medication is working for the Hepatitis C. ?Please call at [phone] as this is the back line and makes it easier to contact us; do not give this number to patients. I want to see him back in [address] Kelsy Cantu, [facility] [place] Gastroenterology LABS: TODAY'S VISIT He is on a stretcher today, he says this is just what they decided, he denies any change in his health status or falls. THe staff with him does not know if he has received the medication or if he started it. The paperwork is unhelpful with this. The patient has cognitive problems and memory problems so he can not help with the particulars. I speak to the asst DON on the phone, they don't think that he started the medication. RETURN OFFICE VISIT in 6 weeks and hopefully at that time they can discern whether not he started the medication and obtain the appropriate labs. [facility], [facility] Medical History Traumatic brain injury Polysubstance abuse Surgical History Hx of colonoscopy H/O craniotomy Hx of cataract surgery History of ankle surgery Social History Advance Directives Date on File: 04/19/22 Review of Systems Const Denies fatigue, Denies fever(s), Denies night sweats, Denies poor appetite and Denies weight loss ENT Reports Normal hearing present, Denies dental pain, Denies dysphagia, Denies hearing loss, Denies mouth pain, Denies odynophagia, Denies throat swelling, Denies tongue swelling and Reports other (Dentition adequate) Card Reports no additional complaints Resp Reports no additional complaints GI Denies abdominal pain, Denies melena, Denies bloating, Denies hematochezia, Denies constipation, Denies GI cramping, Denies dysphagia, Denies excessive flatus, Denies early satiety, Denies heartburn, Denies diarrhea, Denies nausea, Denies odynophagia, Denies vomiting and Denies hematemesis Skin/Breast Denies pruritus, Denies lesions, Denies rash and Denies jaundice Neuro Reports Normal hearing present and Denies Abnormal speech present Endo Denies fatigue Aller/Immun Denies throat swelling and Denies tongue swelling Physical Exam Vital Signs: Last Vital Signs Pulse 66 04/04/23 12:48 BP 129/86 04/04/23 12:48 Const General: cooperative, no acute distress, well developed and well groomed Nutritional Appearance: well nourished and obese Orientation/consciousness: oriented to person, oriented to place and oriented to time Limitations: No language barrier and wheelchair HEENT Head: Yes normocephalic and Yes atraumatic Eyes General: appearance normal, both eyes and all related structures Pupils: Equal, round and reactive pupils present Neck Neck: Yes normal visual inspection and Yes no lymphadenopathy Thyroid: Thyroid normal Resp Effort & Inspection: normal respiratory effort and able to speak in complete sentences Auscultation: clear to auscultation bilaterally Cardio Rate: regular rate Rhythm: regular rhythm Heart sounds: Normal, physiologic split S2 sound present Peripheral pulses: radial pulses present and posterior tibial pulses present GI Inspection: No distended, Yes Abdominal panniculus present and Yes obesity Palpation (GI): Soft to palpation, nontender, no guarding, not rigid and No hepatosplenomegaly present Percussion: Yes normal to percussion Auscultation: normal bowel sounds Rectal Exam - Male: Yes deferred Skin General skin exam: no rashes or lesions noted, turgor normal, skin not dry, no jaundice, No spider nevi and no striae Rashes: no rashes Nails: normal Neuro General: oriented to person, oriented to place and oriented to time Cranial nerves: Yes Equal, round and reactive pupils present and Yes Normal hearing present Speech: No Abnormal speech present Extrem General: Yes normal to inspection, No clubbing, No cyanosis, Yes edema and Yes venous stasis dermatitis Psych Appearance: grossly normal and well kempt Mental Status: mental status grossly normal Speech and movement: Slowed speech present (Psych) Affect: normal affect Attitude: cooperative Thought process: not confabulating and Impoverished thought process present Thought content: Normal thought content present Insight: Poor insight present (Psych) Judgement: Poor judgement present (Psych) Assessment & Plan Assessment & Plan (1) Hepatitis C: Code(s): B19.20 - Unspecified viral hepatitis C without hepatic coma Plan: LABS: TODAY'S VISIT He is on a stretcher today, he says this is just what they decided, he denies any change in his health status or falls. THe staff with him does not know if he has received the medication or if he started it. The paperwork is unhelpful with this. The patient has cognitive problems and memory problems so he can not help with the particulars. I speak to the asst DON on the phone, they don't think that he started the medication. RETURN OFFICE VISIT in 6 weeks and hopefully at that time they can discern whether not he started the medication and obtain the appropriate labs. Coding Level of Care Code Est Pt Level 3 (45757) Diagnoses Hepatitis C B19.20
[2023-04-04 12:48] VITALS: BP 129/86; PULSE 66
== END 2023-04-04 13:33 | disposition home or self-care (01) ==
PROVIDERS: Visit Provider Nurse Practitioner
DX: B19.20 Unspecified viral hepatitis C without hepatic coma (principal)
CPT/HCPCS: 99213

== ENCOUNTER → 2023-04-04 12:23 | Outpatient (BNVA) | payer MEDICARE, MEDICAID, SELFPAY | PROVIDERS: Visit Provider Nurse Practitioner | DX: B19.20 Unspecified viral hepatitis C without hepatic coma (principal) | CPT/HCPCS: 99212 ==

== ENCOUNTER 2023-05-16 12:24 | Outpatient (AMB) | payer MEDICARE, MEDICAID, SELFPAY ==
--- NOTE | 2023-05-16 12:32 | A.OFFVIS_ITS ---
Intake Vital Signs 05/16/23 12:33 Height 6 ft Weight 318 lb BMI 43.1 BP 139/93 H Blood Pressure Location Lt brachial Position Sitting Pulse 72 Intake Visit Reasons: 6 week follow up Intake Note: Patient 6 weeks follow up Patient denies any GI issues. 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 THe staff with him does not know if he has received the medication or if he started it. The paperwork is unhelpful with this. The patient has cognitive problems and memory problems so he can not help with the particulars. I speak to the asst DON on the phone, they don't think that he started the medication. RETURN OFFICE VISIT in 6 weeks and hopefully at that time they can discern whether not he started the medication and obtain the appropriate labs. LABS: TODAY'S VISIT Med list says he is on Epclusa with a stop date of 07/02/2023. Hopefully, this is so. I will send him to the lab today to check his viral loads and for Hep B reactivation. He is tolerating the treatment very well without any noticeable adverse effects. ROV 4 weeks. PFSH Medical History Traumatic brain injury Polysubstance abuse Surgical History Hx of colonoscopy H/O craniotomy Hx of cataract surgery History of ankle surgery Social History Advance Directives Date on File: 04/19/22 Review of Systems Const Denies fatigue, Denies fever(s), Denies night sweats, Denies poor appetite and Denies weight loss ENT Reports Normal hearing present, Denies dental pain, Denies dysphagia, Denies hearing loss, Denies mouth pain, Reports neck pain, Denies odynophagia, Denies throat swelling, Denies tongue swelling and Reports other (Dentition adequate) Card Reports leg ulcers and Reports leg edema Resp Reports no additional complaints GI Denies abdominal pain, Denies melena, Denies bloating, Denies hematochezia, Denies constipation, Denies GI cramping, Denies dysphagia, Denies excessive flatus, Denies early satiety, Denies heartburn, Denies diarrhea, Denies nausea, Denies odynophagia, Denies vomiting and Denies hematemesis Musc Reports abnormal gait, Reports back pain, Reports myalgias, Reports joint swelling and Reports neck pain Skin/Breast Denies pruritus, Denies lesions, Denies rash and Denies jaundice Neuro Reports Normal hearing present, Denies Abnormal speech present, Reports abnormal gait, Reports lack of coordination and Reports memory loss Psych Reports difficulty concentrating and Reports memory loss Endo Denies fatigue Aller/Immun Denies throat swelling and Denies tongue swelling Physical Exam Vital Signs: Last Vital Signs Pulse 72 05/16/23 12:33 BP 139/93 H 05/16/23 12:33 BMI result Body Mass Index 43.1 Const General: cooperative, no acute distress, well developed and well groomed Nutritional Appearance: well nourished and obese Orientation/consciousness: oriented to person, oriented to place and oriented to time Limitations: No language barrier, wheelchair and other limitations (on stretcher today) HEENT Head: Yes normocephalic and Yes atraumatic Eyes General: appearance normal, both eyes and all related structures Pupils: Equal, round and reactive pupils present Neck Neck: Yes normal visual inspection and Yes no lymphadenopathy Thyroid: Thyroid normal Resp Effort & Inspection: normal respiratory effort and able to speak in complete sentences Auscultation: clear to auscultation bilaterally Cardio Rate: regular rate Rhythm: regular rhythm Heart sounds: Normal, physiologic split S2 sound present Peripheral pulses: radial pulses present and posterior tibial pulses present GI Inspection: No distended, No Abdominal panniculus present and Yes obesity Palpation (GI): Soft to palpation, nontender, no guarding, not rigid and No hepatosplenomegaly present Percussion: Yes normal to percussion Auscultation: normal bowel sounds Rectal Exam - Male: Yes deferred Skin General skin exam: no rashes or lesions noted, turgor normal, skin not dry, no jaundice, No spider nevi and no striae Rashes: no rashes Nails: normal Neuro General: oriented to person, oriented to place and oriented to time Cranial nerves: Yes Equal, round and reactive pupils present and Yes Normal hearing present Speech: No Abnormal speech present Extrem General: Yes normal to inspection, No clubbing, No cyanosis, Yes edema and Yes venous stasis dermatitis Psych Appearance: grossly normal and well kempt Mental Status: other Speech and movement: Slowed speech present (Psych) Affect: normal affect Attitude: cooperative Thought process: not confabulating and Impoverished thought process present Thought content: Normal thought content present Insight: Limited insight present (Psych) Judgement: Limited judgement present (Psych) Assessment & Plan Assessment & Plan (1) Chronic hepatitis C: Code(s): B18.2 - Chronic viral hepatitis C (2) Hepatitis B core antibody positive: Code(s): R76.8 - Other specified abnormal immunological findings in serum Plan LABS: TODAY'S VISIT Med list says he is on Epclusa with a stop date of 07/02/2023. Hopefully, this is so. I will send him to the lab today to check his viral loads and for Hep B reactivation. He is tolerating the treatment very well without any noticeable adverse effects. ROV 4 weeks. Orders: Orders Hepatitis B Viral DNA Qn Today B18.2 - Chronic viral hepatitis C, R76.8 - Other specified abnormal immunological findings in serum Hepatitis C Viral Load Today B18.2 - Chronic viral hepatitis C, R76.8 - Other specified abnormal immunological findings in serum Liver Panel Today B18.2 - Chronic viral hepatitis C, R76.8 - Other specified abnormal immunological findings in serum Coding Level of Care Code Est Pt Level 3 (42038) Diagnoses Chronic hepatitis C B18.2 Hepatitis B core antibody positive R76.8
[2023-05-16 12:33] VITALS: BP 139/93; PULSE 72; BMI 43.1
== END 2023-05-16 12:47 | disposition home or self-care (01) ==
PROVIDERS: Visit Provider Nurse Practitioner
DX: B18.2 Chronic viral hepatitis C (principal); R76.8 Other specified abnormal immunological findings in serum
CPT/HCPCS: 99213

== ENCOUNTER 2023-05-16 12:24 | Outpatient (REF) | payer MEDICARE, MEDICAID, SELFPAY ==
[2023-05-16 14:12] LABS: Alanine Aminotransferase 11 U/L (0-40); Albumin Level 3.8 g/dL (3.5-5.0); Alkaline Phosphatase 68 U/L (39-117); Aspartate Amino Transferase 14 U/L (5-37); Bilirubin Direct 0.1 mg/dL (0.0-0.5); Bilirubin Total 0.4 mg/dL (0.0-1.0)
[2023-05-17 04:47] LABS: HBS Num1 86.04 mIU/mL (0-7.99); HBc Num1 5.79 S/CO (0.00-0.79); Hepatitis A Antibody IgM 0.15 Index (0-0.79); Hepatitis B Surface Antigen Negative (Negative); ~HepC Num1 7.21 S/CO (0.00-0.79); ~Hepatitis A Antibody IgM Nonreactive (Nonreactive); ~Hepatitis B Surface Antibody REACTIVE (Nonreactive); ~Hepatitis C Antibody Reactive (Nonreactive)
[2023-05-17 05:47] LABS: HBc Num2 5.72 S/CO; HBc Num3 5.48 S/CO; Hepatitis B Core Antibody Reactive (Nonreactive)
[2023-05-18 14:58] LABS: Hepatitis B Viral DNA Qn - cp NOT DETECTED Log IU/mL (NOT DETECTED); Hepatitis B Viral DNA Qn-IU/mL NOT DETECTED (NOT DETECTED)
[2023-05-18 15:09] LABS: HCV Log PCR <1.18 DETECTED Log IU/mL (NOT DETECTED); HepC Viral Load <15 DETECTED IU/mL (NOT DETECTED)
== END 2023-05-16 12:25 | disposition home or self-care (01) ==
LOC: HO.LAB 12:24
PROVIDERS: Visit Provider Nurse Practitioner
DX: B18.2 Chronic viral hepatitis C (principal); R76.8 Other specified abnormal immunological findings in serum; Z11.59 Encounter for screening for other viral diseases; Z72.89 Other problems related to lifestyle
CPT/HCPCS: 36415; 80076; 86704; 86706; 86709; 86803; 87340; 87517; 87522; 99212

== ENCOUNTER 2023-06-13 13:08 | Outpatient (REF) | payer MEDICARE, MEDICAID, SELFPAY ==
[2023-06-13 15:38] LABS: Alanine Aminotransferase 11 U/L (0-40); Albumin Level 3.7 g/dL (3.5-5.0); Alkaline Phosphatase 68 U/L (39-117); Aspartate Amino Transferase 12 U/L (5-37); Bilirubin Direct 0.1 mg/dL (0.0-0.5); Bilirubin Total 0.4 mg/dL (0.0-1.0); Total Protein 7.9 g/dL (6.5-8.0)
[2023-06-15 17:52] LABS: HCV Log PCR <1.18 NOT DETECTED Log IU/mL (NOT DETECTED); HepC Viral Load <15 NOT DETECTED IU/mL (NOT DETECTED)
== END 2023-06-13 13:09 | disposition home or self-care (01) ==
LOC: HO.LAB 13:08
PROVIDERS: Visit Provider Nurse Practitioner
DX: B18.2 Chronic viral hepatitis C (principal); R76.8 Other specified abnormal immunological findings in serum
CPT/HCPCS: 36415; 80076; 87522; 99212

== ENCOUNTER 2023-08-01 10:40 | Outpatient (REF) | payer MEDICARE, MEDICAID, SELFPAY ==
[2023-08-01 14:55] LABS: Alanine Aminotransferase 13 U/L (0-40); Albumin Level 3.9 g/dL (3.5-5.0); Alkaline Phosphatase 73 U/L (39-117); Aspartate Amino Transferase 14 U/L (5-37); Bilirubin Direct 0.1 mg/dL (0.0-0.5); Bilirubin Total 0.4 mg/dL (0.0-1.0); Total Protein 8.3 g/dL (6.5-8.0)
[2023-08-02 11:43] LABS: Hepatitis B Viral DNA Qn - cp NOT DETECTED Log IU/mL (NOT DETECTED); Hepatitis B Viral DNA Qn-IU/mL NOT DETECTED (NOT DETECTED)
[2023-08-03 12:24] LABS: HCV Log PCR <1.18 NOT DETECTED Log IU/mL (NOT DETECTED); HepC Viral Load <15 NOT DETECTED IU/mL (NOT DETECTED)
== END 2023-08-01 10:41 | disposition home or self-care (01) ==
LOC: HO.LAB 10:40
PROVIDERS: Visit Provider Nurse Practitioner
DX: B18.2 Chronic viral hepatitis C (principal); R76.8 Other specified abnormal immunological findings in serum
CPT/HCPCS: 36415; 80076; 87517; 87522; 99212

== ENCOUNTER 2023-08-01 10:40 | Outpatient (AMB) | payer MEDICARE, MEDICAID, SELFPAY ==
--- NOTE | 2023-08-01 10:57 | A.OFFVIS_ITS ---
Intake Vital Signs 08/01/23 11:01 Height 6 ft BMI Reason not done Patient refused/unable BP 125/86 Blood Pressure Location Rt brachial Position Supine Pulse 66 Comment Patient came in a stretcher Intake Visit Reasons: Follow up Intake Note: Nick presents in the office as a follow up for labs. CC: He states that he is not having any concerns at this time. 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 We call the facility to see if they have the labs.......... To date he has had no adverse effects from the medication in his last viral load was fairly undetectable without any sign of reactivation of his hepatitis-B infection. Again his estimated end of treatment date is 07/02/2023. The only labs he has had drawn recently was an A1C. I will send him to the lab. I will see him now in July to document EOT labs. ROV week of July. Orders: Orders Hepatitis C Viral Load Today B18.2 - Chronic vi ral hepatitis C, R 76.8 - Other speci fied abnormal immu nological findings in serum Liver Panel Today B18.2 - Chronic vi ral hepatitis C, R 76.8 - Other speci fied abnormal immu nological findings in serum LABS: Laboratory Tests 06/13/23 14:36 Hep C Viral Load <15 NOT DETECTED Hep C Viral Load L og <1.18 NOT DETECTE D TODAY'S VISIT On stretcher. At this point he should have completed his treatment. He has had no ill affects I he is happy to hear that his last tests were negative. We will get new labs today and then I will see him in 6 months and at 1 year and I let him know that if he remains viral load negative at that time he will be officially cured. Return office visit in 6 months [facility] Medical History Traumatic brain injury Polysubstance abuse Surgical History Hx of colonoscopy H/O craniotomy Hx of cataract surgery History of ankle surgery Social History Advance Directives Date on File: 04/19/22 Review of Systems Const Denies fatigue, Denies fever(s), Denies night sweats, Denies poor appetite and Denies weight loss ENT Reports Normal hearing present, Denies dental pain, Denies dysphagia, Denies hearing loss, Denies mouth pain, Denies odynophagia, Denies throat swelling, Denies tongue swelling and Reports other (Dentition adequate) Card Reports leg ulcers, Reports leg edema and Reports dyspnea on exertion Resp Reports dyspnea on exertion GI Details: Denies abdominal pain, Denies melena, Denies bloating, Denies hematochezia, Denies constipation, Denies GI cramping, Denies dysphagia, Denies excessive flatus, Denies early satiety, Denies heartburn, Denies diarrhea, Denies nausea, Denies odynophagia, Denies vomiting and Denies hematemesis Musc Reports back pain, Reports myalgias and Reports arthralgias Skin/Breast Denies pruritus, Reports lesions, Denies rash and Denies jaundice Neuro Reports Normal hearing present and Denies Abnormal speech present Endo Denies fatigue Aller/Immun Denies throat swelling and Denies tongue swelling Physical Exam Vital Signs: Last Vital Signs Pulse 66 08/01/23 11:01 BP 125/86 08/01/23 11:01 Const General: cooperative, no acute distress, well developed and well groomed Nutritional Appearance: well nourished and obese Orientation/consciousness: oriented to person, oriented to place and oriented to time Limitations: No language barrier, wheelchair and other limitations (Psychiatric status) HEENT Head: Yes normocephalic and Yes atraumatic Eyes General: appearance normal, both eyes and all related structures Pupils: Equal, round and reactive pupils present Neck Neck: Yes normal visual inspection and Yes no lymphadenopathy Thyroid: Thyroid normal Resp Auscultation: clear to auscultation bilaterally GI Inspection: No distended, No Abdominal panniculus present and Yes obesity Palpation (GI): Soft to palpation, nontender, no guarding, not rigid and No h epatosplenomegaly present Percussion: Yes normal to percussion Auscultation: normal bowel sounds Rectal Exam - Male: Yes deferred Skin General skin exam: no rashes or lesions noted, turgor normal, skin not dry, no jaundice, No spider nevi and no striae Rashes: no rashes Nails: normal Neuro General: oriented to person, oriented to place and oriented to time Cranial nerves: Yes Equal, round and reactive pupils present and Yes Normal hearing present Speech: No Abnormal speech present Extrem General: No clubbing, No cyanosis and Yes edema Psych Appearance: grossly normal and well kempt Mental Status: mental status grossly normal Speech and movement: Slowed speech present (Psych) Affect: normal affect Attitude: cooperative Thought process: Circumstantial thought process present and not confabulating Thought content: Normal thought content present Insight: Limited insight present (Psych) Judgement: Limited judgement present (Psych) Assessment & Plan Assessment & Plan (1) Chronic hepatitis C: Code(s): B18.2 - Chronic viral hepatitis C (2) Hepatitis B core antibody positive: Code(s): R76.8 - Other specified abnormal immunological findings in serum Plan On stretcher. At this point he should have completed his treatment. He has had no ill affects I he is happy to hear that his last tests were negative. We will get new labs today and then I will see him in 6 months and at 1 year and I let him know that if he remains viral load negative at that time he will be officially cured. Return office visit in 6 months Orders: Orders Hepatitis B Viral DNA Qn Today B18.2 - Chronic viral hepatitis C, R76.8 - Other specified abnormal immunological findings in serum Hepatitis C Viral Load Today B18.2 - Chronic viral hepatitis C, R76.8 - Other specified abnormal immunological findings in serum Liver Panel Today B18.2 - Chronic viral hepatitis C, R76.8 - Other specified abnormal immunological findings in serum Coding Level of Care Code Est Pt Level 3 (14097) Diagnoses Chronic hepatitis C B18.2 Hepatitis B core antibody positive R76.8
[2023-08-01 11:01] VITALS: BP 125/86; PULSE 66
== END 2023-08-01 13:25 | disposition home or self-care (01) ==
PROVIDERS: Visit Provider Nurse Practitioner
DX: B18.2 Chronic viral hepatitis C (principal); R76.8 Other specified abnormal immunological findings in serum
CPT/HCPCS: 99213

== ENCOUNTER 2024-10-23 11:47 | Outpatient (AMB) | payer MEDICARE, MEDICAID, SELFPAY ==
--- NOTE | 2024-10-23 11:58 | A.OFFVIS_ITS ---
Vital Signs 10/23/24 12:10 Height 5 ft 9 in Weight 318 lb BMI 47.0 BP 124/77 Blood Pressure Location Lt brachial Position Sitting Pulse 67 Pulse Oximetry (%) 93 Oxygen Delivery Method Room Air Intake Visit Reasons: r.s from 08/08 Intake Note: Patient follow up for HCV Patient denies any GI issues for today. 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 At this point he should have completed his treatment. He has had no ill affects I he is happy to hear that his last tests were negative. We will get new labs today and then I will see him in 6 months and at 1 year and I let him know that if he remains viral load negative at that time he will be officially cured. Return office visit in 6 months Orders: Orders Hepatitis B Viral DNA Qn Today B18.2 - Chronic viral hepatitis C, R76.8 - Other specified abnormal immunological findings in serum Hepatitis C Viral Load Today B18.2 - Chronic viral hepatitis C, R76.8 - Other specified abnormal immunological findings in serum Liver Panel Today B18.2 - Chronic viral hepatitis C, R76.8 - Other specified abnormal immunological findings in serum LABS: Laboratory Tests 08/01/23 12:23 Hep B DNA copies/mL NOT DETECTED Hep B DNA (IU/mL) NOT DETECTED Hep C Viral Load <15 NOT DETECTED Hep C Viral Load Log <1.18 NOT DETECTED TODAY'S VISIT I let Nick know that his hepatitis-C has in fact been cured. Apparently the facility has sent him today for consideration of a screening colonoscopy. He says he had 1 many many years ago in the [place] area and does not remember the results. They also said they wanted him screened for a AAA but that is not a GI concern and an ultrasound or imaging study for this can be ordered through his primary care provider or avascular provider. He denies any cardiac or respiratory problems. He has a seizure disorder he says is well controlled. There are no prior problems with anesthesia or sedation. He has hepatitis-B and C but they have negative viral loads the hepatitis C is status post Epclusa treatment. There is no known family history of colon cancer or polyps. [facility] Medical History Traumatic brain injury Polysubstance abuse Surgical History Hx of colonoscopy H/O craniotomy Hx of cataract surgery History of ankle surgery Social History Advance Directives Date on File: 04/19/22 Review of Systems Const Denies fatigue, Denies fever(s), Denies night sweats, Denies poor appetite and Denies weight loss Eyes Reports requires corrective lenses ENT Reports Normal hearing present, Denies dental pain, Denies dysphagia, Denies hearing loss, Denies mouth pain, Denies odynophagia, Denies throat swelling, Denies tongue swelling and Reports other (Dentition adequate) GI Details: Denies abdominal pain, Denies melena, Denies bloating, Denies hematochezia, Denies constipation, Denies GI cramping, Denies dysphagia, Denies excessive flatus, Denies early satiety, Denies heartburn, Denies diarrhea, Denies nausea, Denies odynophagia, Denies vomiting and Denies hematemesis Skin/Breast Denies pruritus, Denies lesions, Denies rash and Denies jaundice Neuro Reports Normal hearing present and Denies Abnormal speech present Endo Denies fatigue Aller/Immun Denies throat swelling and Denies tongue swelling Physical Exam Vital Signs: Last Vital Signs Pulse 67 10/23/24 12:10 BP 124/77 10/23/24 12:10 Pulse Ox 93 10/23/24 12:10 Oxygen Delivery Method Room Air 10/23/24 12:10 BMI result Body Mass Index 47.0 Const General: cooperative, no acute distress, well developed and well groomed Nutritional Appearance: well nourished and obese morbidly obese Orientation/consciousness: oriented to person, oriented to place and oriented to time Limitations: No language barrier, wheelchair and other limitations (Mild cognitive impairment) HEENT Head: Yes normocephalic and Yes atraumatic Eyes General: appearance normal, both eyes and all related structures Pupils: Equal, round and reactive pupils present Neck Neck: Yes normal visual inspection and Yes no lymphadenopathy Thyroid: Thyroid normal Resp Effort & Inspection: normal respiratory effort and able to speak in complete sentences Auscultation: clear to auscultation bilaterally Cardio Rate: regular rate Rhythm: regular rhythm Heart sounds: Normal, physiologic split S2 sound present Peripheral pulses: radial pulses present and posterior tibial pulses present GI Inspection: No distended, Yes Abdominal panniculus present and Yes obesity Palpation (GI): Soft to palpation, nontender, no guarding, not rigid and No hepatosplenomegaly present Percussion: Yes normal to percussion Auscultation: normal bowel sounds Rectal Exam - Male: Yes deferred Skin General skin exam: no rashes or lesions noted, turgor normal, skin not dry, no jaundice, No spider nevi and no striae Rashes: no rashes Nails: normal Neuro General: oriented to person, oriented to place and oriented to time Cranial nerves: Yes Equal, round and reactive pupils present and Yes Normal hearing present Speech: No Abnormal speech present Extrem General: Yes normal to inspection, No clubbing, No cyanosis, Yes edema and Yes venous stasis dermatitis Psych Appearance: grossly normal and well kempt Mental Status: mental status grossly normal Speech and movement: Normal speech and movement present Affect: normal affect Attitude: cooperative Thought process: Normal thought process present and not confabulating Thought content: Normal thought content present Insight: Limited insight present (Psych) Judgement: Limited judgement present (Psych) Assessment & Plan Assessment & Plan (1) Chronic hepatitis C: Comment: start date of [facility] was 06/2023 Code(s): B18.2 - Chronic viral hepatitis C Category: Medical (2) Hepatitis B core antibody positive: Code(s): R76.8 - Other specified abnormal immunological findings in serum Category: Medical (3) Morbid obesity: Code(s): E66.01 - Morbid (severe) obesity due to excess calories Category: Medical (4) Hepatitis C: Code(s): B19.20 - Unspecified viral hepatitis C without hepatic coma Category: Medical (5) Mild cognitive impairment: Code(s): G31.84 - Mild cognitive impairment of uncertain or unknown etiology Category: Medical (6) Seizure disorder: Code(s): G40.909 - Epilepsy, unspecified, not intractable, without status epilepticus Category: Medical (7) Pre-op examination: Code(s): Z01.818 - Encounter for other preprocedural examination Category: Medical Plan I let Nick know that his hepatitis-C has in fact been cured. Apparently the facility has sent him today for consideration of a screening colonoscopy. He says he had 1 many many years ago in the [facility] and does not remember the results. They also said they wanted him screened for a AAA but that is not a GI concern and an ultrasound or imaging study for this can be ordered through his primary care provider or avascular provider. He denies any cardiac or respiratory problems. He has a seizure disorder he says is well controlled. There are no prior problems with anesthesia or sedation. He has hepatitis-B and C but they have negative viral loads the hepatitis C is status post Epclusa treatment. There is no known family history of colon cancer or polyps. Orders: Orders Comprehensive Met. Panel Today Z01.818 - Encounter for other preprocedural examination Colonoscopy - GI Use Only Today Medications: New sodium,potassium,mag sulfates 17.5-3.13-1.6 gram (Suprep Bowel Prep Kit) 480 mL orally; FOR COLONOSCOPY PREP 354 mL 0RF B19.20 - Unspecified viral hepatitis C without hepatic coma, E66.01 - Morbid (severe) obesity due to excess calories, G31.84 - Mild cognitive impairment of uncertain or unknown etiology, G40.909 - Epilepsy, unspecified, not intractable, without status epilepticus, Z01.818 - Encounter for other preprocedural examination Coding Level of Care Code Est Pt Level 4 (00166) Diagnoses Chronic hepatitis C B18.2 Hepatitis B core antibody positive R76.8 Morbid obesity E66.01 Hepatitis C B19.20 Mild cognitive impairment G31.84 Seizure disorder G40.909 Pre-op examination Z01.818 Time Spent (min) 34
[2024-10-23 12:10] VITALS: BP 124/77; PULSE 67; O2SAT 93; BMI 47.0
--- OUTSIDE RECORDS SUMMARY | 2024-10-23 12:37 | XMS_ITS | Encounter Summary ---
Author Organization [facility] Address [address] [place] [address] Care Team Providers Care Collections Rep Name Role Phone Candelario Garcia MD Primary Care Provider [phone] Encounter Details Date Type Department Care Team (Late st Contact Info) Description 07/12/2024 Lab Requisition [facility] - Main Lab [address] [facility] [place] [address] Candelario Garcia MD [address] [place] [address] Essential (primary) hypertension Social History Tobacco Use Types Packs/Day Years Used Date Smoking Tobacco: Never Assessed Sex and Gender Information Value Date Recorded Sex Assigned at Not on file Legal Sex Male 5:52 AM EST Gender Identity Not on file Sexual Orientation Not on file documented as of this encounter Plan of Treatment Not on file documented as of this encounter Procedures Procedure Name Priority Date/Time Associated Diagnosis Comments COMPLETE BLOOD COUNT Routine 07/12/2024 6:46 AM EST Essential (primary) hypertension COMPREHENSIVE METABOLIC PANEL Routine 07/12/2024 6:46 AM EST Essential (primary) hypertension documented in this encounter Results * Comprehensive metabolic panel (07/12/2024 6:46 AM EST) Sodium 141 133 - 145 mmol/L LAB CHEMISTRY METHOD 07/12/2024 10:34 AM EST [facility] Potassium 4.0 3.5 - 5.5 mmol/L LAB CHEMISTRY METHOD 07/12/2024 10:34 AM EST [facility] Chloride 107 96 - 110 mmol/L LAB CHEMISTRY METHOD 07/12/2024 10:34 AM EST [facility] CO2 30 21 - 32 mmol/L LAB CHEMISTRY METHOD 07/12/2024 10:34 AM [facility] Anion Gap 4 3 - 11 LAB CHEMISTRY METHOD 07/12/2024 10:34 AM [facility] Glucose 95 70 - 100 mg/dL LAB CHEMISTRY METHOD 07/12/2024 10:34 AM [facility] BUN 13 5 - 25 mg/dL LAB CHEMISTRY METHOD 07/12/2024 10:34 AM [facility] Creatinine 0.91 0.70 - 1.30 mg/dL LAB CHEMISTRY METHOD 07/12/2024 10:34 AM [facility] eGFR 91 >=60 mL/min/1. 73m2 LAB CHEMISTRY METHOD 07/12/2024 10:34 AM [facility] Comment:Calculation based on the??Chronic Kidney Disease Epidemiology Collaboration (CKD-EPI) equation refit??without adjustment for race. BUN/Creatinine Ratio 14.3 LAB CHEMISTRY METHOD 07/12/2024 10:34 AM [facility] Calcium 8.8 8.5 - 10.5 mg/dL LAB CHEMISTRY METHOD 07/12/2024 10:34 AM [facility] AST (SGOT) 13 10 - 42 unit/L LAB CHEMISTRY METHOD 07/12/2024 10:34 AM [facility] ALT (SGPT) 16 10 - 60 unit/L LAB CHEMISTRY METHOD 07/12/2024 10:34 AM [facility] Alkaline Phosphatase 78 42 - 121 unit/L LAB CHEMISTRY METHOD 07/12/2024 10:34 AM [facility] Total Protein 7.5 6.0 - 8.0 g/dL LAB CHEMISTRY METHOD 07/12/2024 10:34 AM [facility] Albumin 3.6 3.2 - 5.0 g/dL LAB CHEMISTRY METHOD 07/12/2024 10:34 AM [facility] Total Bilirubin 0.3 0.0 - 1.4 mg/dL LAB CHEMISTRY METHOD 07/12/2024 10:34 AM [facility] Blood Venous blood specimen / Unknown Venipuncture / Unknown 07/12/2024 6:46 AM EST 07/12/2024 9:33 AM EST us Candelario Garcia MD LAB BLOOD ORDERABLES Final R esult [facility] [address] [place] [address], * (ABNORMAL) Complete blood count (07/12/2024 6:46 AM EST) WBC 6.2 4.8 - 10.8 K/mcL LAB HEMETOLOGY METHOD 07/12/2024 10:19 AM [facility] RBC 4.80 4.50 - 5.50 M/mcL LAB HEMETOLOGY METHOD 07/12/2024 10:19 AM [facility] Hemoglobin 14.1 13.5 - 17.5 g/dL LAB HEMETOLOGY METHOD 07/12/2024 10:19 AM [facility] Hematocrit 45.6 42.0 - 54.0 % LAB HEMETOLOGY METHOD 07/12/2024 10:19 AM [facility] MCV 95.8 79.0 - 98.0 FL LAB HEMETOLOGY METHOD 07/12/2024 10:19 AM [facility] MCH 29.6 27.0 - 32.0 pcg LAB HEMETOLOGY METHOD 07/12/2024 10:19 AM [facility] MCHC 30.9(L) 32.0 - 37.0 g/dL LAB HEMETOLOGY METHOD 07/12/2024 10:19 AM [facility] RDW 14.2 11.0 - 15.0 % LAB HEMETOLOGY METHOD 07/12/2024 10:19 AM EST [facility] Platelets 191 130 - 400 K/mcL LAB HEMETOLOGY METHOD 07/12/2024 10:19 AM EST [facility] MPV 11.8(H) 7.0 - 11.0 FL LAB HEMETOLOGY METHOD 07/12/2024 10:19 AM EST [facility] NRBC 0.0 <1.0 % LAB HEMETOLOGY METHOD 07/12/2024 10:19 AM EST [facility] NRBC Absolute 0.00 <0.10 K/mcL LAB HEMETOLOGY METHOD 07/12/2024 10:19 AM [facility] Blood Venous blood specimen / Unknown Venipuncture / Unknown 07/12/2024 6:46 AM EST 07/12/2024 9:33 AM EST us Candelario Garcia MD LAB BLOOD ORDERABLES Final R esult [facility] [address] [place] [address], documented in this encounter Visit Diagnoses Diagnosis Essential (primary) hypertension Unspecified essential hypertension documented in this encounter Care Teams Collections Rep Relationship Specialty Start Date End Date Candelario Garcia MD [address] [place] [address] PCP - General Family Medicine 05/31/24 documented as of this encounter
== END 2024-10-23 12:29 | disposition home or self-care (01) ==
LOC: HO.HGI 11:47
PROVIDERS: PCP Emergency Medicine; Visit Provider Nurse Practitioner
DX: Z01.818 Encounter for other preprocedural examination (principal); Z12.11 Encounter for screening for malignant neoplasm of colon; G40.909 Epilepsy, unspecified, not intractable, without status epilepticus; G31.84 Mild cognitive impairment of uncertain or unknown etiology; B18.2 Chronic viral hepatitis C; E66.01 Morbid (severe) obesity due to excess calories
CPT/HCPCS: 99024

== ENCOUNTER → 2024-10-23 11:47 | Outpatient (BNVA) | payer MEDICARE, MEDICAID, SELFPAY | PROVIDERS: PCP Emergency Medicine; Visit Provider Nurse Practitioner | DX: Z01.818 Encounter for other preprocedural examination (principal); B18.2 Chronic viral hepatitis C; R76.8 Other specified abnormal immunological findings in serum; E66.01 Morbid (severe) obesity due to excess calories; G31.84 Mild cognitive impairment of uncertain or unknown etiology; G40.909 Epilepsy, unspecified, not intractable, without status epilepticus | CPT/HCPCS: 99212 ==